=== PATIENT | female | born 1985 | race Caucasian/White ===

== ENCOUNTER → 2017-03-27 15:05 | Outpatient (REF) | payer OTHER, SELFPAY ==
[2017-03-27 19:16] LABS: Basophils # 0.1 K/mm3 (0-0.2); Basophils % 0.5 % (0.1-2.0); Eosinophils # 0.1 K/mm3 (0.0-0.4); Hematocrit 44.5 % (37.0-47.0); Lymphocytes # 4.6 K/mm3 (0.7-4.5); Lymphocytes % 44.6 K/mm3 (10-50); Mean Corpuscular HGB Conc 31.5 g/dL (31.8-35.4); Mean Corpuscular Hemoglobin 29.7 pg (27.0-31.2); Mean Corpuscular Volume 94.1 fl (81-99); Mean Platelet Volume 9.2 fl (7.4-10.4); Monocytes # 0.5 K/mm3 (0.1-1.0); Monocytes % 4.6 % (1.7-9.3); Neutrophils % 49.3 % (37.0-80.0); Platelet Count 337 K/mm3 (142-424); Red Blood Count 4.73 M/mm3 (4.20-5.40); Red Cell Distribution Width 12.9 % (11.5-17.5); White Blood Count 10.2 K/mm3 (4.8-10.8)
[2017-03-27 20:10] LABS: Alanine Aminotransferase 17 U/L (12-78); Albumin Level 4.2 gm/dL (3.4-5.0); Albumin/Globulin Ratio 1.3 (1.1-1.8); Alkaline Phosphatase 70 U/L (46-116); Anion Gap 10.7 mEq/L (5-15); Aspartate Amino Transferase 17 U/L (15-37); Bilirubin,Total 0.2 mg/dL (0.2-1.0); Blood Urea Nitrogen 13 mg/dL (7-18); Calcium 9.6 mg/dL (8.5-10.1); Carbon Dioxide 31 mmol/L (21.0-32.0); Chloride 105 mmol/L (98-107); Creatinine,Serum 0.92 mg/dL (0.55-1.02); Estimated Glomerular Filt Rate 72 ml/min (>60); GFR (African American) 87 ML/MIN (>60); Globulin 3.3 gm/dl (1.3-3.2); Glucose 92 mg/dL (74-106); Potassium 4.7 mmoL/L (3.5-5.1); Sodium 142 mmol/L (136-145); Total Protein,Serum 7.5 gm/dL (6.4-8.2)
[2017-03-27 20:20] LABS: Erythrocyte Sedimentation Rate 30 mm/hr (0-20)
[2017-03-29 11:11] LABS: RA Latex Turbid. <10.0 IU/mL (0.0-13.9)
[2017-03-29 12:22] LABS: Anti-Jo-1 <0.2 AI (0.0-0.9); Anti-Smith Antibody <0.2 AI (0.0-0.9); Antichromatin Antibodies <0.2 AI (0.0-0.9); Antiscleroderma-70 Antibodies <0.2 AI (0.0-0.9); RNP Antibodies <0.2 AI (0.0-0.9); Sjogren's Anti-SS-A <0.2 AI (0.0-0.9); Sjogren's Anti-SS-B <0.2 AI (0.0-0.9)
[2017-03-29 14:19] LABS: Anti-Centromere B Antibodies <0.2 AI (0.0-0.9); Anti-DNA (DS) Ab Qn 1 IU/mL (0-9)
[2017-03-30 19:21] LABS: Anti-Cyclic Citrullinated Pept 6 units (0-19)
== END ==
LOC: LAB 15:05
PROVIDERS: Visit Provider Physician Assistant
DX: M79.89 Other specified soft tissue disorders (principal)
CPT/HCPCS: 80053; 85025; 85651; 86038; 86141; 86200; 86431

== ENCOUNTER → 2018-09-01 15:11 | Outpatient (CLI) | payer OTHER, SELFPAY ==
--- NOTE | 2018-09-01 15:47 | XR_ITS ---
XR chest 2V HISTORY: Swollen lymph nodes, smoker ITS.REASON: smoker ORDERING PHYSICIAN: Pat Ortiz APRN PATIENT AGE: 33 years COMPARISON: 12/31/2007 FINDINGS: The cardiomediastinal silhouette and pulmonary vascularity are within normal limits. No lobar consolidation or collapse is evident. There are minimal atelectatic or fibrotic changes in the right lung base. The remaining lungs are clear. There is mild wedging involving T8 which has developed since the interval. Mild COPD. Coronary artery calcifications are present as well. IMPRESSION: COPD with coronary artery calcifications and mild atelectasis or fibrosis right lung base.. Mild wedging of T8 age-indeterminate
[2018-09-01 16:01] LABS: Basophils % 0.2 % (0.1-2.0); Eosinophils # 0.2 K/mm3 (0.0-0.4); Eosinophils % 0.8 % (0.1-12.0); Hematocrit 41.2 % (37.0-47.0); Hemoglobin 13.2 g/dL (12.2-16.2); Lymphocytes # 3.3 K/mm3 (0.7-4.5); Lymphocytes % 17.3 % (10-50); Mean Corpuscular HGB Conc 31.9 g/dL (31.8-35.4); Mean Corpuscular Hemoglobin 29.4 pg (27.0-31.2); Mean Corpuscular Volume 92.2 fl (81-99); Mean Platelet Volume 9.1 fl (7.4-10.4); Monocytes # 0.5 K/mm3 (0.1-1.0); Monocytes % 2.8 % (1.7-9.3); Neutrophils # 14.9 K/mm3 (1.8-7.8); Neutrophils % 78.9 % (37.0-80.0); Platelet Count 325 K/mm3 (142-424); Red Blood Count 4.47 M/mm3 (4.20-5.40)
[2018-09-01 16:14] LABS: MANUAL DIFFERENTIAL MANUAL DIFFERENTIAL (MANUAL DIFF)
[2018-09-01 16:48] LABS: Alanine Aminotransferase 16 U/L (12-78); Albumin Level 3.5 gm/dL (3.4-5.0); Alkaline Phosphatase 71 U/L (46-116); Anion Gap 14.6 mEq/L (5-15); Aspartate Amino Transferase 16 U/L (15-37); Bilirubin,Total 0.3 mg/dL (0.2-1.0); Blood Urea Nitrogen 11 mg/dL (7-18); C-Reactive Protein 1.8 mg/L (0.0-0.9); Calcium 9.1 mg/dL (8.5-10.1); Carbon Dioxide 29 mmol/L (21.0-32.0); Chloride 103 mmol/L (98-107); Chol/HDL Ratio 4.9 (1-3.5); Cholesterol 191 mg/dL (140-200); Creatinine,Serum 0.76 mg/dL (0.55-1.02); Estimated Glomerular Filt Rate 89 ml/min (>60); Free T4 (Free Thyroxine) 1.14 ng/dl (0.76-1.46); GFR (African American) 107 ML/MIN (>60); Globulin 3.4 gm/dl (1.3-3.2); Glucose 85 mg/dL (74-106); HDL Cholesterol 39 mg/dL (29-89); LDL Cholesterol 132 mg/dL (0-130); Potassium 3.6 mmoL/L (3.5-5.1); Sodium 143 mmol/L (136-145); Thyroid Stimulating Hormone 2.35 uIU/ml (0.358-3.740); Total Protein,Serum 6.9 gm/dL (6.4-8.2); Triglycerides 98 mg/dL (30-200); VLDL Cholesterol 20 mg/dL (0-40)
[2018-09-01 16:54] LABS: Lymphocytes % 16 % (10-50); Monocytes % 3 % (2-9); Neutrophils % 78 % (42-76); Platelet Estimate Normal; RBC Morphology Normal; Total Cells Counted 100
[2018-09-01 18:43] LABS: Erythrocyte Sedimentation Rate 28 mm/hr (0-20)
[2018-09-03 14:42] LABS: Vitamin D 25 Hydroxy 60.9 ng/mL (30.0-100.0)
== END ==
PROVIDERS: PCP Nurse Practitioner Family; Visit Provider Nurse Practitioner Family
DX: R53.83 Other fatigue (principal); R68.89 Other general symptoms and signs; F17.200 Nicotine dependence, unspecified, uncomplicated; Z80.9 Family history of malignant neoplasm, unspecified
CPT/HCPCS: 36415; 71046; 80053; 80061; 82652; 84439; 84443; 85007; 85025; 85651; 86140

== ENCOUNTER → 2018-09-29 16:53 | Outpatient (CLI) | payer OTHER, SELFPAY ==
[2018-09-29 17:58] LABS: Monoscreen (Rapid) Negative (Negative)
[2018-09-29 18:24] LABS: Basophils % 0.1 % (0.1-2.0); Eosinophils # 0.1 K/mm3 (0.0-0.4); Eosinophils % 0.3 % (0.1-12.0); Hematocrit 36.4 % (37.0-47.0); Lymphocytes # 2.7 K/mm3 (0.7-4.5); Lymphocytes % 13.5 % (10-50); Mean Corpuscular Hemoglobin 29.8 pg (27.0-31.2); Mean Corpuscular Volume 90.4 fl (81-99); Mean Platelet Volume 9.1 fl (7.4-10.4); Monocytes # 0.9 K/mm3 (0.1-1.0); Monocytes % 4.6 % (1.7-9.3); Neutrophils # 16.3 K/mm3 (1.8-7.8); Neutrophils % 81.6 % (37.0-80.0); Platelet Count 256 K/mm3 (142-424); Red Blood Count 4.03 M/mm3 (4.20-5.40); Red Cell Distribution Width 13.8 % (11.5-17.5)
[2018-09-29 18:45] LABS: MANUAL DIFFERENTIAL MANUAL DIFFERENTIAL (MANUAL DIFF)
[2018-09-29 19:08] LABS: Alanine Aminotransferase 15 U/L (12-78); Albumin Level 3.8 gm/dL (3.4-5.0); Albumin/Globulin Ratio 1.2 (1.1-1.8); Alkaline Phosphatase 76 U/L (46-116); Anion Gap 16.8 mEq/L (5-15); Aspartate Amino Transferase 21 U/L (15-37); Bilirubin,Total 0.4 mg/dL (0.2-1.0); Blood Urea Nitrogen 11 mg/dL (7-18); Calcium 9.6 mg/dL (8.5-10.1); Carbon Dioxide 26 mmol/L (21.0-32.0); Chloride 101 mmol/L (98-107); Estimated Glomerular Filt Rate 73 ml/min (>60); GFR (African American) 88 ML/MIN (>60); Globulin 3.2 gm/dl (1.3-3.2); Glucose 73 mg/dL (74-106); Potassium 3.8 mmoL/L (3.5-5.1); Sodium 140 mmol/L (136-145)
[2018-09-29 19:55] LABS: Lymphocytes % 14 % (10-50); Monocytes % 5 % (2-9); Neutrophils % 81 % (42-76); Platelet Estimate Normal; RBC Morphology Normal; Total Cells Counted 100
[2018-10-02 04:24] LABS: EBV Ab VCA, IgM <36.0 U/mL (0.0-35.9); EBV Nuclear Antigen Ab, IgG <18.0 U/mL (0.0-17.9); Epstein-Barr Virus Early Ag Ab <9.0 U/mL (0.0-8.9)
== END ==
PROVIDERS: Visit Provider Otolaryngology
DX: R59.9 Enlarged lymph nodes, unspecified (principal)
CPT/HCPCS: 36415; 80053; 85007; 85025; 86318; 86663; 86664; 86665

== ENCOUNTER 2019-09-21 16:12 | Emergency (ER) | payer BC, MEDICAID, SELFPAY ==
[2019-09-21 16:58] VITALS: BP 120/90; PULSE 96; RESP 19; TEMP 36.8; O2SAT 100
[2019-09-21 17:13] VITALS: BP 120/90; PULSE 96; RESP 19; TEMP 36.8; O2SAT 100
--- NOTE | 2019-09-21 17:13 | HMH.EDUTC ---
[facility] – [place] Disposition Clinical Impression: Viral upper respiratory infection Disposition: Home, Self-Care Condition on Discharge: Good Instructions: Preventing the Spread of Coronavirus Discharge Instructions Additional Instructions: No sign of a bacterial infection. Likely viral. Viruses can take 7-14 days to run their course. Nasal saline and bulb syringe or nose Ariane to remove nasal drainage to help with nasal congestion. Hard to eat, drink, sleep with nasal congestion so important to keep this cleaned out. Monitor temp. Tylenol or Motrin as needed for pain or fever Encourage fluids, water, Gatorade, Powerade, Pedialyte if /toddler/child Warm salt water gargles Warm fluids Sore throat lozenges Sleep elevated Humidifier/vaporizer covid swab was sent. These results are typically sent to the primary care. Be sure you follow-up in 2-3 days if no improvement so we can review the results and treat if necessary if you do not have a primary care, I recommend to get 1 but in the meantime, call for results. Follow-up immediately for new or worsening symptoms or no noticeable improvement over the next 48-72 hours. Referrals: PCP,No [Primary Care Provider] - Forms: Work/School Release Time of Disposition: 17:37 Medical Decision Making - Chago Inquiry Pt receiving controlled substance: No Vital Signs: 09/21/19 16:58 09/21/19 17:13 Temperature 98.3 F 98.3 F Temperature Source Oral Oral Pulse Rate 96 H Pulse Rate [Left] 96 H Respiratory Rate 19 19 Blood Pressure 120/90 Blood Pressure [Right Arm] 120/90 Blood Pressure Mean [Right Arm] 100 Blood Pressure Source [Right Arm] Automatic Cuff Blood Pressure Position [Right Arm] Sitting 02 Sat by Pulse Oximetry 100 Oxygen Delivery Method Room Air Room Air - Lab Data Lab Results 09/21/19 17:13: Strep Scn Rapid Clinic Negative Orders (Tests/Meds): ORDERS Category Date Time Status SARS-CoV-2, NALLELY Stat Lab 09/21/19 17:21 Received Strep Screen Confirmation Stat Micro 09/21/19 17:13 Received [facility] [place] HPI - General Chief complaint: Urgent Treatment Center Stated complaint: Headache, weakness, needs needs covid test Time Seen by Provider: 09/21/19 17:13 Mode of Arrival: Ambulatory Source of Information: Patient Limitations: No Limitations Description of Symptoms (Recalled from Triage Doc. by RN): Low grade fever and headache HEENT Symptoms (Recalled from RN notes): No Resp Symptoms (Recalled from RN notes): No Skin Symptoms (Recalled from RN notes): No MS Symptoms (Recalled from RN notes): No Functional Status (Recalled from RN notes): stable - History of Present Illness Provider Complaint: 34 yr old female presents for headache and low grade fever for two days and needs covid test prior to returning to work. pt denies any other symptom - Related Data Home Medications Medication Instructions Recorded Confirmed buprenorphine 8 mg-naloxone 2 mg 1 tab SUBLINGUAL QDAY 04/09/17 09/29/18 sublingual tablet Allergies Allergy/AdvReac Type Severity Reaction Status Date / Time Penicillins Allergy Intermediate I-HIVES Verified 09/29/18 16:19 tramadol Allergy Intermediate I-ITCHING Verified 09/29/18 16:19 amoxicillin Allergy Verified 09/29/18 16:19 - Worker's Comp Is this a Worker's Comp case?: No Is this an [facility] Worker's Comp?: No Is this a Tra Worker's Comp?: No [facility] History - Hepatitis A Screen Drug use history?: No High risk sexual behaviors?: No History of sexually transmitted infection?: No Currently employed?: No Childcare worker?: No Do you have indoor plumbing?: Yes Do you have electricity?: Yes Attestation statement:: This patient has been screened for Hepatitis A risk factors. I have reviewed the patient's past medical history: Yes Medical History: Denies:: Cancer, Diabetes Mellitus Type 1, Diabetes Mellitus Type 2, Hyperlipidemia, Hypertension, Internal Pacemaker, MRSA, Pulmonary Embolism, Seizures, T
[2019-09-21 17:31] LABS: UTC Strep Screen (Rapid) Negative (Negative)
[2019-09-23 13:19] LABS: Covid-19 Nasal PCR Sendout Lex NOT DETECTED
== END 2019-09-21 17:39 | disposition home or self-care (01) ==
LOC: UTC 16:37 → COUGHCL 16:45 → UTC 16:45
PROVIDERS: Emergency Provider Nurse Practitioner Family
DX: J06.9 Acute upper respiratory infection, unspecified (principal); F17.210 Nicotine dependence, cigarettes, uncomplicated; F19.11 Other psychoactive substance abuse, in remission
CPT/HCPCS: 87880; 99202; U0004

== ENCOUNTER → 2020-01-01 16:32 | Outpatient (CLI) | payer BC, MEDICAID, SELFPAY ==
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
== END ==
PROVIDERS: PCP Emergency Medicine; Visit Provider Emergency Medicine
DX: M54.2 Cervicalgia (principal); M54.9 Dorsalgia, unspecified; R20.0 Anesthesia of skin; R20.2 Paresthesia of skin
CPT/HCPCS: 72141; 72146; 76376

== ENCOUNTER → 2020-03-25 08:18 | Outpatient (CLI) | payer BC, MEDICAID, SELFPAY ==
--- NOTE | 2020-03-25 08:23 | XR_ITS ---
PROCEDURE: XR WRIST RT MIN 3V CLINICAL INDICATION: bilateral wrist pain COMPARISON: No exams were available for comparison FINDINGS: No fracture or dislocation. No lytic or blastic change. There is normal mineralization. The joint spaces are well-preserved. No significant degenerative/arthritic changes. No erosive changes evident. Other findings:None. IMPRESSION: Negative right wrist Dictated by: Yonatan Hoffman MD 03/25/2020 11:41 Yonatan Hoffman MD in [place] 03/25/2020 11:41
--- NOTE | 2020-03-25 08:23 | XR_ITS ---
PROCEDURE: XR WRIST LT MIN 3V CLINICAL INDICATION: Bilateral wrist pain COMPARISON: No exams were available for comparison FINDINGS: No fracture or dislocation. No lytic or blastic change. There is normal mineralization. The joint spaces are well-preserved. No significant degenerative/arthritic changes. No erosive changes evident. Other findings:None. IMPRESSION: No acute findings. Dictated by: Yonatan Hoffman MD 03/25/2020 11:53 Yonatan Hoffman MD in [place] 03/25/2020 11:53
== END ==
PROVIDERS: PCP Emergency Medicine; Visit Provider Orthopaedic Surgery
DX: M25.532 Pain in left wrist (principal); M25.531 Pain in right wrist
CPT/HCPCS: 73110

== ENCOUNTER 2020-08-21 18:11 | Emergency (ER) | payer BC, MEDICAID, SELFPAY ==
[2020-08-21 18:40] VITALS: BP 127/97; PULSE 104; RESP 18; TEMP 36.7; O2SAT 99; BMI 19.8
--- NOTE | 2020-08-21 19:27 | HMH.EDUTC ---
[facility] [place] Clinical Impression: Sinusitis Qualifiers: Sinusitis location: unspecified location Chronicity: unspecified Qualified Code(s): J32.9 - Chronic sinusitis, unspecified Acute bronchitis Qualifiers: Bronchitis organism: unspecified organism Qualified Code(s): J20.9 - Acute bronchitis, unspecified Disposition: Home, Self-Care Condition on Discharge: Good Instructions: Sinusitis, Acute Bronchitis, DI for Sinusitis, DI for Acute Bronchitis, Prednisone, Albuterol, Azithromycin Additional Instructions: ? [employer] and Start antibiotic. Be sure to complete entire prescription even if feeling better ? Monitor temp. Tylenol every 4 hours as needed and / or ibuprofen every 6 hours as needed ( As long as your primary care physician has told you that it ok to take both. For fever/aches/pains ER if no less than 101 despite Tylenol or Motrin ? Humidifier/vaporizer or hot steamy shower ? Inhaler every 4-6 hours as needed like we discussed. If unsure how to use it, ask pharmacist to demonstrate how. Should help open airways and improve cough, wheezing, and shortness of breath ? Mucinex during the day for your cough and cough suppressant only at night. Be sure to drink lots of water with this medication it will help with congestion Start steroid Tomorrow your was given injection in the [place] tonight. Helps with inflammation therefore, cough and wheezing. Follow directions on the package. Reviewed side effects. Patient reports taking them before. Follow up IMMEDIATELY for new or worsening of symptoms OR no noticeable improvement over the next 48-72 hours. 911 immediately for any life threatening symptoms such as chest pain or difficulty breathing Prescriptions: predniSONE [Deltasone 10mg tablet] 10 mg PO BID 5 Days #10 tab Transmission Status: Received by [facility] guaiFENesin [Mucinex 600mg tablet] 1 - 2 tab PO Q12H PRN #20 tab.er.12h PRN Reason: Congestion Transmission Status: Received by [facility] Azithromycin [Z-Jorge 250mg Tab] 250 mg PO DIRECTED #6 tab Transmission Status: Received by [facility] Referrals: Melvin Lawson MD [Primary Care Provider] - As needed Forms: Work/School Release Time of Disposition: 19:49 Medical Decision Making - Chago Inquiry Pt receiving controlled substance: No Chago was queried for this patient: No Vital Signs: 08/21/20 18:40 08/21/20 19:50 Temperature 98.1 F 98.1 F Temperature Source Oral Pulse Rate 104 H Pulse Rate [Right Brachial] 104 H Respiratory Rate 18 18 Blood Pressure 127/97 H Blood Pressure [Right Arm] 127/97 H Blood Pressure Mean [Right Arm] 107 Blood Pressure Source [Right Arm] Automatic Cuff Blood Pressure Position [Right Arm] Sitting 02 Sat by Pulse Oximetry 99 Oxygen Delivery Method Room Air Orders (Tests/Meds): ED MEDICATIONS Discontinued Medications Generic Name Dose Route Start Last Admin Trade Name Freq PRN Reason Stop Dose Admin Albuterol Sulfate 2 puffs 08/21/20 19:37 08/21/20 19:49 Albuterol-Hfa 90mcg/Puff Inhaler 8gm IH 09/20/20 19:36 2 puffs Q4HP PRN Administration Shortness Of Breath Azithromycin 500 mg 08/21/20 19:37 08/21/20 19:45 Azithromycin 250mg Tablet PO 08/21/20 19:38 500 mg ONCE ONE Administration Protocol Methylprednisolone Sodium Succinate 125 mg 08/21/20 19:37 08/21/20 19:50 Methylprednisolone Sod Succ 125mg Vial IM 08/21/20 19:38 125 mg ONCE ONE Administration Miscellaneous 1 unit 08/21/20 19:37 08/21/20 19:49 Aerochamber/Optihaler MC 08/21/20 19:38 1 unit ONCE ONE Administration ORDERS Category Date Time Status Covid-19 Nasal PCR ([facility]) Routine Lab 08/21/20 19:50 Received Medical Decision Narrative: Discussed CXR with patient and she advised she wanted to get started on Medication and feeling better states that if she didnt get any better she would follow up with PCP to get it she was tired
[2020-08-21 19:50] VITALS: BP 127/97; PULSE 104; RESP 18; TEMP 36.7; O2SAT 99
== END 2020-08-21 20:02 | disposition home or self-care (01) ==
PROVIDERS: Emergency Provider Nurse Practitioner; PCP Emergency Medicine
DX: J20.9 Acute bronchitis, unspecified (principal); J32.9 Chronic sinusitis, unspecified; F17.210 Nicotine dependence, cigarettes, uncomplicated
CPT/HCPCS: 96372; 99202; G0463; U0003

== ENCOUNTER → 2021-03-08 18:24 | Outpatient (CLI) | payer BC, MEDICAID, SELFPAY ==
[2021-03-08 19:44] LABS: Amphetamine/Metha Screen,Urine Negative ng/ml (<1000); Barbiturates Screen,Urine Negative ng/ml (<200)
[2021-03-08 19:45] LABS: Benzodiazepines Screen,Urine Negative ng/ml (<200)
[2021-03-08 19:47] LABS: Cannabinoid Screen,Urine Negative ng/ml (<50)
[2021-03-08 19:48] LABS: Cocaine Screen,Urine Negative ng/ml (<300); Methadone Screen,Urine Negative ng/ml (<300)
[2021-03-08 19:49] LABS: Opiate Screen,Urine Negative ng/ml (<300)
[2021-03-08 19:50] LABS: Phencyclidine Screen,Urine Negative ng/ml (<25)
== END ==
PROVIDERS: Visit Provider Emergency Medicine
DX: Z79.899 Other long term (current) drug therapy (principal)
CPT/HCPCS: 80305

== ENCOUNTER 2021-05-29 15:13 | Emergency (ER) | payer BC, MEDICAID, SELFPAY ==
[2021-05-29 15:14] VITALS: BP 131/75; PULSE 85; RESP 18; TEMP 36.9; O2SAT 99; BMI 19.8
--- NOTE | 2021-05-29 16:14 | HMH.EDUTC ---
[facility] – [place] Disposition Clinical Impression: Encounter for laboratory testing for COVID-19 virus Disposition: Home, Self-Care Condition on Discharge: Good Instructions: Preventing the Spread of Coronavirus Discharge Instructions Additional Instructions: Drink plenty of fluids. Take tylenol for pain or fever. Return if you begin to have difficulty breathing. Follow up with your regular doctor. GO TO THE ER FOR ANY WORSENING SYMPTOMS Referrals: Melvin Lawson MD [Primary Care Provider] - Time of Disposition: 16:30 Medical Decision Making - Medical Records Medical records reviewed: No: I reviewed the patient's medical records. - Chago Inquiry Pt receiving controlled substance: No Vital Signs: 05/29/21 15:14 05/29/21 16:36 Temperature 98.4 F 98.4 F Temperature Source Oral Oral Pulse Rate 85 Pulse Rate [Right Radial] 85 Respiratory Rate 18 19 Blood Pressure 131/75 Blood Pressure [Right Arm] 131/75 Blood Pressure Mean [Right Arm] 93 Blood Pressure Source Automatic Cuff Blood Pressure Source [Right Arm] Automatic Cuff Blood Pressure Position Sitting Blood Pressure Position [Right Arm] Sitting 02 Sat by Pulse Oximetry 99 Oxygen Delivery Method Room Air Room Air [facility] [place] HPI - General Stated complaint: covid test Time Seen by Provider: 05/29/21 15:15 Mode of Arrival: Ambulatory Source of Information: Patient Limitations: No Limitations Description of Symptoms (Recalled from Triage Doc. by RN): covid swab for surgery HEENT Symptoms (Recalled from RN notes): No Resp Symptoms (Recalled from RN notes): No Skin Symptoms (Recalled from RN notes): No MS Symptoms (Recalled from RN notes): No Functional Status (Recalled from RN notes): n/a - History of Present Illness Provider Complaint: She is here because she needs a covid-19 test. - Related Data Home Medications Medication Instructions Recorded Confirmed buprenorphine 8 mg-naloxone 2 mg 1 tab SUBLINGUAL QDAY 04/09/17 05/30/21 sublingual tablet Previous Rx's Medication Instructions Recorded meloxicam 15 mg tablet 15 mg PO DAILY PRN #21 tab 09/12/20 gabapentin 600 mg tablet 600 mg PO QID #120 tab 05/30/21 Allergies Allergy/AdvReac Type Severity Reaction Status Date / Time Penicillins Allergy Intermediate I-HIVES Verified 05/30/21 16:01 tramadol Allergy Intermediate I-ITCHING Verified 05/30/21 16:01 amoxicillin Allergy Verified 05/30/21 16:01 - Worker's Comp Is this a Worker's Comp case?: No [facility] History - Hepatitis A Screen Drug use history?: No High risk sexual behaviors?: No History of sexually transmitted infection?: No Currently employed?: No Childcare worker?: No Do you have indoor plumbing?: Yes Do you have electricity?: Yes Attestation statement:: This patient has been screened for Hepatitis A risk factors. I have reviewed the patient's past medical history: Yes Medical History: Denies:: Cancer, Diabetes Mellitus Type 1, Diabetes Mellitus Type 2, Hyperlipidemia, Hypertension, Internal Pacemaker, MRSA, Pulmonary Embolism, Seizures, Transient Ischemic Attacks (TIA) Comment: ENDOMETRIOSIS Laterality Cases: Bilateral: Other Other Surgeries: Yes: Other. No: Pacemaker Amputation: No Fractures: No Comment: ENDOMETREOSIS, DENTAL SURGERY - Social History Smoking Status: Current every day smoker Tobacco Type: cigarettes # Packs/Day (cigarettes): 1 Alcohol Intake: never Substance Use Type: former substance user, opiates, painkillers Occupational Status: other Housing: apartment Household Members: none Family Hx:: Cancer, Hyperlipidemia, Hypertension, Thyroid Disorder Comment: RA,FIBROMYALGIA ROS Obtained: Yes All systems reviewed & no additional complaints - Constitutional Constitutional: Reports system reviewed and no additional complaints, except as docu - Eyes Eyes: Reports system reviewed and no additional complaints, except as docu - ENT Ears, Nose, Mouth, and Throat: Reports s
[2021-05-29 16:36] VITALS: BP 131/75; PULSE 85; RESP 19; TEMP 36.9; O2SAT 99
== END 2021-05-29 16:36 | disposition home or self-care (01) ==
PROVIDERS: Emergency Provider Nurse Practitioner Family; PCP Emergency Medicine
DX: Z11.52 Encounter for screening for COVID-19 (principal)
CPT/HCPCS: 99211; C9803; G0463; U0003; U0005

== ENCOUNTER → 2021-11-20 07:01 | Outpatient (CLI) | payer BC, MEDICAID, SELFPAY ==
[2021-11-20 18:14] LABS: Basophils # 0.1 K/mm3 (0-0.2); Basophils % 1.6 % (0.1-2.0); Eosinophils # 0.1 K/mm3 (0.0-0.4); Eosinophils % 1.1 % (0.1-12.0); Hemoglobin 13.9 g/dL (12.2-16.2); Lymphocytes # 3.3 K/mm3 (0.7-4.5); Lymphocytes % 39.3 % (10-50); Mean Corpuscular HGB Conc 32.3 g/dL (31.8-35.4); Mean Corpuscular Hemoglobin 30.9 pg (27.0-31.2); Mean Corpuscular Volume 95.7 fl (81-99); Mean Platelet Volume 10.5 fl (7.4-10.4); Monocytes # 0.5 K/mm3 (0.1-1.0); Monocytes % 6.3 % (1.7-9.3); Neutrophils # 4.3 K/mm3 (1.8-7.8); Neutrophils % 51.8 % (37.0-80.0); Platelet Count 285 K/mm3 (142-424); Red Cell Distribution Width 13.6 % (11.5-17.5); White Blood Count 8.3 K/mm3 (4.8-10.8)
[2021-11-20 18:27] LABS: Alanine Aminotransferase 14 U/L (12-78); Albumin Level 4.2 g/dl (3.5-5.0); Albumin/Globulin Ratio 1.8 (1.1-1.8); Alkaline Phosphatase 75 U/L (38-126); Aspartate Amino Transferase 33 U/L (14-36); Blood Urea Nitrogen 11 mg/dl (7-17); Calcium 9.4 mg/dl (8.4-10.2); Carbon Dioxide 31 mmol/L (22.0-30.0); Chloride 100 mmol/L (98-107); Chol/HDL Ratio 4.3 (1-3.5); Cholesterol 194 mg/dl (140-200); Estimated Glomerular Filt Rate 114 ml/min (>60); GFR (African American) 138 ML/MIN (>60); Globulin 2.3 g/dL (1.3-3.2); Glucose 94 mg/dl (74-100); HDL Cholesterol 45 mg/dl (40-60); Sodium 140 mmol/L (136-145); Total Protein,Serum 6.5 g/dl (6.3-8.2); Triglycerides 215 mg/dl (30-150); VLDL Cholesterol 43 mg/dL (0-40)
[2021-11-20 18:36] LABS: Bilirubin,Total < 0.1 mg/dl (0.2-1.3)
[2021-11-20 18:38] LABS: Direct LDL Cholesterol 99.01 mg/dL (100-129)
[2021-11-20 18:44] LABS: 25-OH Vitamin D, Total 51.7 ng/mL (30-100); Free T4 (Free Thyroxine) 1.04 ng/dl (0.78-2.19)
[2021-11-20 18:58] LABS: Thyroid Stimulating Hormone 1.83 uIU/mL (0.465-4.68)
== END ==
PROVIDERS: PCP Emergency Medicine; Visit Provider Emergency Medicine
DX: R53.83 Other fatigue (principal); E55.9 Vitamin D deficiency, unspecified; Z79.899 Other long term (current) drug therapy
CPT/HCPCS: 80053; 80061; 82306; 84439; 84443; 85025

== ENCOUNTER → 2022-06-26 10:51 | Outpatient (CLI) | payer MEDICAID, SELFPAY ==
--- NOTE | 2022-06-26 10:59 | CT_ITS ---
FINAL REPORT TECHNIQUE: Axial images were obtained from the lung bases through the pubic symphysis before and after the administration of intravenous contrast. Oral contrast was administered. This study was performed with techniques to keep radiation doses as low as reasonably achievable (ALARA). Individualized dose reduction techniques using automated exposure control or adjustment of mA and/or kV according to the patient's size were employed. CLINICAL HISTORY: POST OP PAIN FINDINGS: Precontrast images demonstrate no evidence of nephrolithiasis or hydronephrosis. Abdomen: The lung bases are clear. The liver parenchyma is homogeneous. The gallbladder is present. The spleen, pancreas and adrenal glands are unremarkable. The kidneys enhance normally. There is no mass or adenopathy identified. There are multiple fluid-filled loops of small bowel. Bowel loops measure up to 2.3 cm. There is no obstructive pattern. Pelvis: The appendix is normal. The urinary bladder is unremarkable. There is no mass, free fluid or adenopathy. The uterus is anteverted. IMPRESSION: Nonspecific bowel gas pattern. Reviewed, Interpreted and Dictated by Sergio Landeros MD Transcribed by Tim Murray Authenticated and [facility]
== END ==
PROVIDERS: PCP Emergency Medicine; Visit Provider Obstetrics & Gynecology
DX: R10.32 Left lower quadrant pain (principal); M25.559 Pain in unspecified hip; M54.17 Radiculopathy, lumbosacral region; G89.18 Other acute postprocedural pain
CPT/HCPCS: 74178; Q9967

== ENCOUNTER 2023-03-07 19:23 | Outpatient (CLI) | payer BC, SELFPAY ==
[2023-03-07 21:45] LABS: Amphetamine/Metha Screen,Urine Negative ng/ml (<1000); Barbiturates Screen,Urine Negative ng/ml (<200); Benzodiazepines Screen,Urine Negative ng/ml (<200); Cannabinoid Screen,Urine Negative ng/ml (<50); Cocaine Screen,Urine Negative ng/ml (<300); Methadone Screen,Urine Negative ng/ml (<300); Opiate Screen,Urine Negative ng/ml (<300); Phencyclidine Screen,Urine Negative ng/ml (<25)
== END 2023-03-07 23:59 ==
PROVIDERS: PCP Internal Medicine; Visit Provider Internal Medicine
DX: Z79.899 Other long term (current) drug therapy (principal)
CPT/HCPCS: 80307

== ENCOUNTER 2023-03-20 21:16 | Outpatient (CLI) | payer BC, SELFPAY ==
[2023-03-20 23:48] LABS: Amphetamine/Metha Screen,Urine Negative ng/ml (<1000)
[2023-03-20 23:49] LABS: Barbiturates Screen,Urine Negative ng/ml (<200)
[2023-03-20 23:50] LABS: Benzodiazepines Screen,Urine Negative ng/ml (<200); Cannabinoid Screen,Urine Negative ng/ml (<50)
[2023-03-20 23:51] LABS: Cocaine Screen,Urine Negative ng/ml (<300); Methadone Screen,Urine Negative ng/ml (<300)
[2023-03-20 23:52] LABS: Opiate Screen,Urine Negative ng/ml (<300)
[2023-03-20 23:53] LABS: Phencyclidine Screen,Urine Negative ng/ml (<25)
== END 2023-03-20 23:59 ==
PROVIDERS: PCP Internal Medicine; Visit Provider Internal Medicine
DX: Z79.899 Other long term (current) drug therapy (principal)
CPT/HCPCS: 80307

== ENCOUNTER 2023-05-14 22:02 | Outpatient (CLI) | payer BC, SELFPAY ==
[2023-05-14 19:36] LABS: Chol/HDL Ratio 5.2 (1-3.5); Cholesterol 212 mg/dl (140-200); HDL Cholesterol 41 mg/dl (40-60); Triglycerides 84 mg/dl (30-150); VLDL Cholesterol 17 mg/dL (0-40)
[2023-05-14 19:47] LABS: Direct LDL Cholesterol 120.86 mg/dL (100-129)
== END 2023-05-14 23:59 ==
LOC: LAB.DROPOF 22:02
PROVIDERS: PCP Internal Medicine; Visit Provider Internal Medicine
DX: E78.2 Mixed hyperlipidemia (principal)
CPT/HCPCS: 80061

== ENCOUNTER 2024-05-04 11:06 | Outpatient (CLI) | payer MEDICAID, SELFPAY ==
--- NOTE | 2024-05-04 11:11 | XR_ITS ---
FINAL REPORT TECHNIQUE: Chest PA & Lateral CLINICAL HISTORY: tobacco use COMPARISON: None FINDINGS: 2 views of the chest were performed. The heart size is normal. The mediastinum is within normal limits. There is no acute cardiopulmonary process. There are no pleural effusions. There is no pneumothorax. The bony thorax appears intact. IMPRESSION: No acute cardiopulmonary process. Reviewed, Interpreted and Dictated by Sergio Landeros MD Transcribed by Bee Worthington Authenticated and [facility]
[2024-05-04 21:34] LABS: Thyroid Stimulating Hormone 2.14 uIU/mL (0.465-4.68)
== END 2024-05-04 23:59 | disposition home or self-care (01) ==
LOC: RAD 11:07
PROVIDERS: PCP Internal Medicine; Visit Provider Internal Medicine
DX: R68.3 Clubbing of fingers (principal); F17.210 Nicotine dependence, cigarettes, uncomplicated; R53.83 Other fatigue; Z83.49 Family history of other endocrine, nutritional and metabolic diseases
CPT/HCPCS: 71046; 84443